=== PATIENT | male | born 1985 | race Caucasian/White ===

== ENCOUNTER 2019-04-26 19:17 | Emergency (ER) | payer SELFPAY ==
[~2019-04-26] VITALS: Ht 175.3 cm; Wt 75.0 kg
[2019-04-26 19:36] VITALS: BP 135/78
== END 2019-04-26 19:45 | disposition left against medical advice (07) ==
LOC: ER 19:17
DX: Z53.21 Procedure and treatment not carried out due to patient leaving prior to being seen by health care provider (principal)